=== PATIENT | male | born 2005 | race Caucasian/White ===

== ENCOUNTER 2023-07-15 20:01 | Emergency (ER) | payer OTHER, MEDICAID ==
[2023-07-15] MEDS: Ibuprofen 600 MG Tab PO ONE (21:43)
== END 2023-07-15 23:23 | disposition home or self-care (01) ==
LOC: FB.ED 20:01
DX: S90.122A Contusion of left lesser toe(s) without damage to nail, initial encounter (principal); Z72.0 Tobacco use; W20.8XXA Other cause of strike by thrown, projected or falling object, initial encounter; Y92.89 Other specified places as the place of occurrence of the external cause; Y99.0 Civilian activity done for income or pay
CPT/HCPCS: 73630; 99283; A9270

== ENCOUNTER 2023-07-29 00:18 | Emergency (ER) | payer MEDICAID, OTHER ==
[2023-07-29] MEDS ORDERED: Ibuprofen 800 MG Tab PO ONE (00:35)
== END 2023-07-29 00:50 | disposition home or self-care (01) ==
LOC: FB.ED 00:18
DX: T40.8X1A Poisoning by lysergide [LSD], accidental (unintentional), initial encounter (principal); E86.0 Dehydration; F17.210 Nicotine dependence, cigarettes, uncomplicated
CPT/HCPCS: 99284; A9270

== ENCOUNTER 2024-08-29 19:09 | Emergency (ER) | payer BC ==
[2024-08-29] MEDS ORDERED: Cephalexin 500 MG Cap PO ONE (19:10)
== END 2024-08-29 20:16 | disposition home or self-care (01) ==
LOC: FB.ED 19:09
DX: L60.0 Ingrowing nail (principal); L08.9 Local infection of the skin and subcutaneous tissue, unspecified; Z79.899 Other long term (current) drug therapy
CPT/HCPCS: 93005; 99283; A9270

== ENCOUNTER 2025-01-21 18:54 | Emergency (ER) | payer BC, MEDICAID ==
[2025-01-21] MEDS ORDERED: Cephalexin 500 MG Cap PO ONE (18:55)
[2025-01-21] MEDS: Diphtheria,Pertussis(Acell),Tetanus Vaccine 0.5 ML Syringe IM ONE (20:43)
[2025-01-21] MEDS: Ibuprofen 600 MG Tab PO ONE (20:44)
== END 2025-01-21 20:56 | disposition home or self-care (01) ==
LOC: FB.ED 18:54
DX: S81.832A Puncture wound without foreign body, left lower leg, initial encounter (principal); Z23 Encounter for immunization; W34.010A Accidental discharge of airgun, initial encounter
CPT/HCPCS: 73590; 90471; 90715; 99283; A9270